=== PATIENT | female | born 1985 | race Caucasian/White ===

== ENCOUNTER 2022-05-16 15:56 | Emergency (ER) | payer MEDICAID, SELFPAY ==
[2022-05-16 15:58] VITALS: BP 149/79; PULSE 68; RESP 15; TEMP 36.2; O2SAT 98; BMI 23.1
--- NOTE | 2022-05-16 16:50 | US_ITS ---
STUDY: FIRST TRIMESTER OBSTETRICAL ULTRASOUND REASON FOR EXAM: Female, 36 years old Vaginal bleeding LMP: April 10, 2022 TECHNIQUE: Transvaginal TECHNICAL QUALITY: Adequate. PRIOR ULTRASOUND: None. FINDINGS: There is no demonstrated intrauterine gestational sac. There is no demonstrated yolk sac. The placenta is non-visualized. There is no demonstrated embryo ( pole). The estimated gestation age (EGA) by LMP is 5 weeks, 1 days. The estimated date of delivery (WALLY) by LMP is January 15, 2023. The uterus measures 9.0 x 5.0 x 3.3 cm. There is no demonstrated uterine fibroid. The cervix is closed. The right ovary measures 2.5 x 1.6 x 1.3 cm. There is no right ovarian cyst. There is no visualized right adnexal mass or complex lesion. The left ovary measures 2.7 x 2.0 x 1.6 cm.. There is 1.5 cm cyst. There is no visualized left adnexal mass or complex lesion. There is no fluid in the cul de sac. US/Transvaginal w/Preg US IMPRESSION: No intrauterine gestation seen. Left adnexal cyst. Electronically Signed: Ger Grove MD at 18:35 EDT ,
--- NOTE | 2022-05-16 17:00 | EDS_ITS ---
HPI <SHERICE Saldaña - Last Filed: 05/16/22 19:01> HPI - Female History of Present Illness Chief Complaint: Vag Bld, Preg Narrative Narrative: Patient is a 36-year-old female with no significant medical history, patient is a 1 para 1. Patient states that her last menstrual cycle was April 10. Her and her partner currently try to be and she is using the calendar method. Patient states that on Friday she tested positive for a positive with 2 separate test. She started having vaginal bleeding today as well as some cramping. She is concerned. She is currently not followed up and had a ultrasound at this time. She denies any other chest pain, shortness breath, dizziness. PFSH <SHERICE Saldaña - Last Filed: 05/16/22 19:01> PFSH Allergy/AdvReac Type Severity Reaction Status Date / Time No Known Allergies Allergy Verified 05/16/22 16:01 Surgical History (Updated 05/16/22 @ 16:39 by Simi Lockhart) History of appendectomy Social History Smoking Status: Current every day smoker tobacco type: cigarettes ROS <SHERICE Saldaña - Last Filed: 05/16/22 19:01> ROS ED ROS Narrative Constitutional: Negative for fever, chills, weight loss, weakness Eyes: Negative for vision loss, vision change, double vision ENT: Negative for any sore throat, ear pain, congestion Cardiovascular: Negative for any chest pain, tightness, palpitations Respiratory: Negative for any cough, sputum production, hemoptysis, dyspnea, dyspnea on exertion, orthopnea Gastrointestinal: Negative for any abdominal pain, nausea, vomiting, diarrhea, constipation, blood in stool, blood in vomit : Negative for any urinary frequency, dysuria, retention, blood in urine. Positive for vaginal bleeding Muscle skeletal: Negative for any muscle joint pain, stiffness, myalgias, arthralgias, neck pain, back pain Neurological: Negative for any headache, syncope, numbness or tingling, dizziness Skin: Negative for any rashes, lumps, itching, abrasions, lacerations Psychiatric: Negative for any depression, anxiety, stress, suicidal ideation, homicidal ideation Hematologic: Negative for any easy bruising, excessive bruising, easy bleeding Allergies: Negative for any eczema, hives, rash EXAM <SHERICE Saldaña - Last Filed: 05/16/22 19:01> Physical Exam Narrative Exam Narrative: Vital signs reviewed. Patient is in no distress. HEET: Head normocephalic atraumatic, TMs clear bilaterally. Posterior pharynx is clear, moist mucous membranes. Nares clear bilaterally. Neck: Supple with no lymphadenopathy or tenderness. No signs of meningismus, negative jolt sign. Cardiac: Regular rate and rhythm no murmurs gallops or rubs, equal peripheral pulses bilaterally. Respiratory: Lungs clear to auscultation bilaterally. No chest tenderness. Abdomen: Soft, nontender, nondistended. No abdominal bruit or pulsatile masses. No hepatosplenomegaly Extremities: No peripheral edema, no signs of gross trauma or deformity. Active full range of motion of all extremities. Neuro: Cranial nerves II through XII intact, no focal neurological deficits. Skin: Clean dry and intact with no rash, purpura, petechiae, vesicles or pustules. Backs/flank: No CVA tenderness, no midline spinal tenderness, no deformity. Psych: Normal mood and affect. No SI, HI or acute psychosis. Const Vital Signs: 05/16/22 15:58 Temperature 97.2 F L Temperature Source Temporal Pulse Rate 68 Respiratory Rate 15 Blood Pressure 149/79 H Blood Pressure Mean 102 Pulse Ox 98 Oxygen Delivery Method Room Air <Dr. Jeffrey Mcelroy DO - Last Filed: 05/16/22 19:26> Physical Exam Const Vital Signs: 05/16/22 15:58 Temperature 97.2 F L Temperature Source Temporal Pulse Rate 68 Respiratory Rate 15 Blood Pressure 149/79 H Blood Pressure Mean 102 Pulse Ox 98 Oxygen Delivery Method Room Air MDM <SHERICE Saldaña - Last Filed: 05/16/22 19:01> [facility] Lab Data Labs: Laboratory Results - last 24 hr 05/16/22 05/16/22 05/16/22 17:05 17:07 17:07 WBC 8.5 RBC 5.14 Hgb 15.2 H Hct 45.2 MCV 87.9 MCH 29.6 MCHC 33.6 RDW Std Deviation 40.5 RDW Coeff of Merle 12.5 Plt Count 299 MPV 10.1 Immature Gran % (Auto) 0.200 Neut % (Auto) 50.7 Lymph % (Auto) 34.6 [place] % (Auto) 10.0 Eos % (Auto) 3.6 Baso % (Auto) 0.9 Absolute Neuts (auto) 4.3 Absolute Lymphs (auto) 2.95 Nucleated RBC % 0 Differential Comment SCANNED Sodium Potassium Chloride Carbon Dioxide Anion Gap BUN Creatinine Estim Creat Clear Calc Est GFR (MDRD) Af Amer Est GFR (MDRD) Non-Af BUN/Creatinine Ratio Glucose Calcium HCG, Quant 12 H Urine Color Yellow Urine Clarity Clear Urine pH 7.0 Ur Specific [place] 1.010 Urine Protein Negative Urine Glucose (UA) Normal Urine Ketones Negative Urine Occult Blood 25 H Urine Nitrite Negative Urine Bilirubin Negative Urine Urobilinogen Normal Ur Leukocyte Esterase Negative Urine RBC 0 SEEN Urine WBC 0 SEEN Ur Squamous Epith Cells 0 SEEN Urine Bacteria 0 SEEN Urine Mucus 0 SEEN Blood Type 05/16/22 05/16/22 17:07 17:07 WBC RBC Hgb Hct MCV MCH MCHC RDW Std Deviation RDW Coeff of Merle Plt Count MPV Immature Gran % (Auto) Neut % (Auto) Lymph % (Auto) [place] % (Auto) Eos % (Auto) Baso % (Auto) Absolute Neuts (auto) Absolute Lymphs (auto) Nucleated RBC % Differential Comment Sodium 141 Potassium 3.7 Chloride 107 Carbon Dioxide 29.0 Anion Gap 5 BUN 7 Creatinine 0.86 Estim Creat Clear Calc 76.59 Est GFR (MDRD) Af Amer 95 Est GFR (MDRD) Non-Af 79 BUN/Creatinine Ratio 8.2 L Glucose 94 Calcium 9.3 HCG, Quant Urine Color Urine Clarity Urine pH Ur Specific [place] Urine Protein Urine Glucose (UA) Urine Ketones Urine Occult Blood Urine Nitrite Urine Bilirubin Urine Urobilinogen Ur Leukocyte Esterase Urine RBC Urine WBC Ur Squamous Epith Cells Urine Bacteria Urine Mucus Blood Type A NEGATIVE Radiography Diagnostic Testing: Clinical Impression(s) from Imaging Studies Obstetrics Ultrasound 05/16/22 16:50 IMPRESSION: No intrauterine gestation seen. Left adnexal cyst. Electronically Signed: Ger Grove MD at 18:35 EDT , Treatment and Re-Evaluation Narrative: All radiologic examinations were read, reviewed by the emergency department attending. From these reads, a plan of care will be put in place. Appears well, patient appears nontoxic, vital signs are stable. Patient presents to the emergency department for concern for being as well as vaginal bleeding. Patient did receive a full work-up. Patient vital signs are stable, patient has no evidence of any hemorrhage, CBC was unremarkable. Chemistries were unremarkable, her hCG quantitative was 12. Patient's blood type is A negative. Patient did receive a urinalysis which was negative for any infection. Patient's transvaginal ultrasound shows no intrauterine gestation seen, left adnexal cyst. I spoke with the patient and her partner at length. Is possible the patient so early that is difficult to assess this could be why the hCG is so low. However the patient will follow-up closely and have a repeat hCG drawn. Secondary to the spines, patient will receive a RhoGAM shot secondary to her A negative blood. Patient is agreeable with the plan, she will follow-up outpatient. I spoke with the patient and her partner, all questions were answered, return precautions given. <Dr. Jeffrey Mcelroy, DO - Last Filed: 05/16/22 19:26> [facility] MDM Narrative Medical decision making narrative: I have personally performed a face to face assessment of the patient and have reviewed the CHARLENE Note. I performed a substantive portion of the visit including all aspects of the following. My garza findings include: History: Patient presents with vaginal bleeding that began today. Patient states it started out as just some mild spotting but then became almost like a normal menstrual period bleeding. Patient states she did a test 3 days ago and it was positive. Patient is concerned that she may be having a miscarriage. Patient admits to some lower abdominal cramping. Patient denies any fevers or chills. Patient denies any urinary complaints. Exam: Vital signs are stable. Patient is afebrile. Patient is in no acute distress. Oral mucosa is pink and moist. Neck is supple. Trachea is midline. There is no JVD. Heart was regular rate and rhythm. Lungs are clear and equal bilaterally. Abdomen is soft. Bowel sounds are normal. There is some mild suprapubic tenderness. There is no rebound or guarding noted. Cranial nerves II through XII are intact. There are no focal motor or sensory deficits noted. Medical Decision Making: Differential diagnosis includes ectopic , threatened , incomplete , and urinary tract infection. CBC will be obtained to assess for leukocytosis and anemia. Quantitative hCG will be obtained to assess for status. Basic metabolic profile will be obtained to assess for electrolyte abnormality and renal function. Urinalysis will be obtained to assess for urinary tract infection. Type and Rh will be obtained to assess for blood type. Pelvic ultrasound will be obtained to assess for ectopic and spontaneous . CBC was reviewed and was within normal limits. Quantitative hCG was reviewed and was 12. Basic metabolic profile was reviewed and was within normal limits. Blood type was a negative. Urinalysis was reviewed. There is no evidence of urinary tract infection or hematuria. Pelvic ultrasound was obtained. There is no intrauterine or ectopic visualized. There is a left adnexal cyst noted. This was interpreted by the radiologist and was also independently reviewed by myself. Patient was advised of her findings. Patient was advised that with a quantitative hCG of 12, it is unable to be determined if there is a viable or not. Patient was advised with that low of a quantitative hCG, she will need to be reexamined in 2 days to have her quantitative hCG level repeated. Patient understands and is agreeable with the plan. All questions were answered. Lab Data Labs: Laboratory Results - last 24 hr 05/16/22 05/16/22 05/16/22 17:05 17:07 17:07 WBC 8.5 RBC 5.14 Hgb 15.2 H Hct 45.2 MCV 87.9 MCH 29.6 MCHC 33.6 RDW Std Deviation 40.5 RDW Coeff of Merle 12.5 Plt Count 299 MPV 10.1 Immature Gran % (Auto) 0.200 Neut % (Auto) 50.7 Lymph % (Auto) 34.6 [place] % (Auto) 10.0 Eos % (Auto) 3.6 Baso % (Auto) 0.9 Absolute Neuts (auto) 4.3 Absolute Lymphs (auto) 2.95 Nucleated RBC % 0 Differential Comment SCANNED Sodium Potassium Chloride Carbon Dioxide Anion Gap BUN Creatinine Estim Creat Clear Calc Est GFR (MDRD) Af Amer Est GFR (MDRD) Non-Af BUN/Creatinine Ratio Glucose Calcium HCG, Quant 12 H Urine Color Yellow Urine Clarity Clear Urine pH 7.0 Ur Specific [place] 1.010 Urine Protein Negative Urine Glucose (UA) Normal Urine Ketones Negative Urine Occult Blood 25 H Urine Nitrite Negative Urine Bilirubin Negative Urine Urobilinogen Normal Ur Leukocyte Esterase Negative Urine RBC 0 SEEN Urine WBC 0 SEEN Ur Squamous Epith Cells 0 SEEN Urine Bacteria 0 SEEN Urine Mucus 0 SEEN Blood Type 05/16/22 05/16/22 17:07 17:07 WBC RBC Hgb Hct MCV MCH MCHC RDW Std Deviation RDW Coeff of Merle Plt Count MPV Immature Gran % (Auto) Neut % (Auto) Lymph % (Auto) [place] % (Auto) Eos % (Auto) Baso % (Auto) Absolute Neuts (auto) Absolute Lymphs (auto) Nucleated RBC % Differential Comment Sodium 141 Potassium 3.7 Chloride 107 Carbon Dioxide 29.0 Anion Gap 5 BUN 7 Creatinine 0.86 Estim Creat Clear Calc 76.59 Est GFR (MDRD) Af Amer 95 Est GFR (MDRD) Non-Af 79 BUN/Creatinine Ratio 8.2 L Glucose 94 Calcium 9.3 HCG, Quant Urine Color Urine Clarity Urine pH Ur Specific [place] Urine Protein Urine Glucose (UA) Urine Ketones Urine Occult Blood Urine Nitrite Urine Bilirubin Urine Urobilinogen Ur Leukocyte Esterase Urine RBC Urine WBC Ur Squamous Epith Cells Urine Bacteria Urine Mucus Blood Type A NEGATIVE Radiography Diagnostic Testing: Clinical Impression(s) from Imaging Studies Obstetrics Ultrasound 05/16/22 16:50 IMPRESSION: No intrauterine gestation seen. Left adnexal cyst. Electronically Signed: Ger Grove MD at 18:35 EDT , Discharge Plan Triage Chief Complaint: Vag Bld, Preg ED Midlevel Provider: Cirilo Huang ED Provider: Jeffrey Mcelroy Dx/Rx/DC Orders Clinical Impression: Vaginal bleeding, Threatened miscarriage Instructions: ED Possible Miscarriage ... Primary Care Provider: Care Physician,No Primary Referrals: Bryan Elizabeth MD [Med Staff - Active Staff] - Care Physician,No Primary [Primary Care Provider] - Activity Restrictions/Additional Instructions: Your blood type is A negative, your hCG quant was 12. There was nothing seen on your transvaginal ultrasound. You need to follow-up with your [facility]ICE CONSULTANT to have a repeat hCG quant drawn. You received a RhoGAM shot today. Disposition Disposition: Home, Self Care
[2022-05-16 17:17] LABS: Bacteria 0 SEEN /hpf (None Seen); Mucous, Urine 0 SEEN /hpf (<or=2+); Red Blood Cells-Urine 0 SEEN /hpf (0-5); Squamous Epithelial Cells - UA 0 SEEN /hpf (5-10); White Blood Cells 0 SEEN /hpf (0-5)
[2022-05-16 17:21] LABS: Absolute Lymphocyte Count 2.95 X10^3/uL (0.83-4.51); Absolute Neutrophil Count 4.3 X10^3/uL (2.0-7.7); Basophil# 0.08 X10^3/uL; Basophil% 0.9 % (0-1); Eosinophil# 0.31 X10^3/uL; Eosinophils% 3.6 % (0-5); Hematocrit 45.2 % (37-47); Hemoglobin 15.2 g/dL (12.0-15.0); Lymphocyte # 2.95 X10^3/ul (0.83-4.51); Lymphocyte % 34.6 % (19-41); Mean Corp Hgb Conc 33.6 g/dL (32-36); Mean Corpuscular Hgb 29.6 pg (27.0-32.0); Mean Corpuscular Volume 87.9 fL (81-99); Mean Platelet Vol. 10.1 fl (6.2-12.0); Monocyte# 0.85 X10^3/uL; NRBC Flagged by Analyzer 0 % (0-5); Neutrophil # 4.31 X10^3/uL (2.7-7.7); Neutrophil % 50.7 % (47-70); POSITIVE MORPHOLOGY YES; Platelet Count 299 K/mm3 (150-450); RBC Distribution Width CV 12.5 % (11.6-14.6); RBC Distribution Width SD 40.5 fl (35.1-43.9); Red Blood Count 5.14 M/mm3 (4.2-5.4); White Blood Count 8.5 K/mm3 (4.4-11.0)
[2022-05-16 17:23] LABS: Color, Urine Yellow (Yellow); Glucose, Dipstick Normal (Normal); Ketone-Dipstick Negative (Negative); Leukocyte Esterase-Dipstick Negative /ul (Negative); Nitrite-Dipstick Negative (Negative); Occult Blood-Urine 25 /ul (Negative); Protein-Dipstick Negative (Negative); Urine Bilirubin Dipstick Negative (Negative); Urine Clarity Clear (Clear); Urine Urobilinogen Normal (Normal)
[2022-05-16 17:35] LABS: Differential Indicated SCAN CRITERIA MET
[2022-05-16 17:36] LABS: Anion Gap 5 (5-15); BUN 7 mg/dL (7-18); BUN/Creat Ratio 8.2 RATIO (10-20); Calcium,Total 9.3 mg/dL (8.5-10.1); Chloride 107 mmol/L (98-107); Creatinine, Serum 0.86 mg/dL (0.55-1.02); EST Glomerular Filtration Rate 79 mL/min (>60); Est Glom Filt Rate - Afr Amer 95 mL/min (>60); Estimated Creatinine Clearance 76.59 ml/min; Glucose 94 mg/dL (74-106); Potassium 3.7 mmol/L (3.5-5.1); Sodium Level 141 mmol/L (136-145)
[2022-05-16 17:45] LABS: Differential Comment SCANNED
[2022-05-16 17:47] LABS: hCG Titer Quant., Serum 12 mIU/mL (1-3)
[2022-05-16 20:16] VITALS: BP 115/54; PULSE 74; RESP 15; O2SAT 99
== END 2022-05-16 20:17 | disposition home or self-care (01) ==
PROVIDERS: Nurse Practitioner; Emergency Provider Emergency Medicine; Visit Provider Emergency Medicine
DX: O20.0 Threatened abortion (principal); O26.899 Other specified pregnancy related conditions, unspecified trimester; Z67.11 Type A blood, Rh negative; Z3A.00 Weeks of gestation of pregnancy not specified
CPT/HCPCS: 76817; 80048; 81001; 84702; 85025; 86850; 86900; 86901; 96372; 99283; A4216; J2790

== ENCOUNTER 2022-08-26 18:44 | Emergency (ER) | payer MEDICAID, SELFPAY ==
[2022-08-26 18:46] VITALS: BP 123/76; PULSE 69; RESP 16; TEMP 36.6; O2SAT 99; BMI 23.1
--- NOTE | 2022-08-26 18:57 | ED.VIS.DYS ---
HPI History of Present Illness Chief Complaint: Cough PFSH PFSH Allergy/AdvReac Type Severity Reaction Status Date / Time No Known Allergies Allergy Verified 08/26/22 18:46 Surgical History History of appendectomy Social History Smoking Status: Current every day smoker tobacco type: cigarettes EXAM Physical Exam Const Vital Signs: 08/26/22 18:46 08/26/22 21:40 08/26/22 21:41 Temperature 97.8 F Temperature Source Temporal Pulse Rate 69 78 Respiratory Rate 16 16 Respiratory Effort Normal Short of Breath Respiratory Depth Normal Respiratory Pattern Normal Blood Pressure 123/76 H 119/78 Blood Pressure Mean 91 91 Pulse Ox 99 99 Oxygen Delivery Method Room Air Room Air Room Air MDM MDM MDM Narrative Medical decision making narrative: HISTORY OF PRESENT ILLNESS: 36-year-old female presents with cough. She states she has been ill for the better part of the last week. States has been coughing especially with poor air quality recently. States she is approximate 6 weeks . States she may be dehydrated. Had an episode of almost passing out earlier today. Denies any chest pain or shortness of breath at this time. Does note cough and sinus congestion. She denies any vaginal bleeding, passage of any tissue. Notes history of miscarriage in April. REVIEW OF SYSTEMS: Pertinent positives: Cough, lightheadedness, near syncope Pertinent negatives: Syncope, headache, abdominal pain, vaginal bleeding PHYSICAL EXAM: Nursing triage notes reviewed, Vital signs reviewed Constitutional: please see mdm HENT: MMM Eyes: Pupils equal round and reactive to light, Extraocular muscles intact Neck: No stridor, no JVD, full neck ROM Lungs: Clear to auscultation, No wheezing or rales. No increased work of breathing, no conversational dyspnea, no accessory muscle use, no nasal flaring. No respiratory distress noted Heart: Regular rate and rhythm, No murmurs, No rubs and No gallops, 2+ distal pulses (radial, femoral, posterior tibial) in all extremities Abdomen: Soft, there is no tenderness, rigidity, rebound or guarding, no obvious peritoneal signs, no palpable pulsatile abdominal masses, no auscultated abdominal bruit : No CVAT Extremities: No edema Neuro: Alert and oriented x3, neuro exam at baseline, cranial nerves II through XII are intact. No pain with extraocular muscle movement. There is negative test of skew. Normal speech. 5 of 5 strength in upper and lower extremities in flexion extension. Intact sensation to light touch in upper and lower extremity dermatomes. No truncal or extremity ataxia. No dysdiadochokinesia. Normal gait. 2+ reflexes. No meningeal signs. Negative Babinski. NIH of 0 Skin: No rash or lesions noted MEDICAL DECISION MAKING: Chief Complaint: Cough, lightheadedness, near syncope External records reviewed: EF 55% Factors affecting care: 6 weeks OB Social determinants of health: none History obtained from others: The patient's significant other Consults: none ALL IMAGES (IF OBTAINED) HAVE BEEN PERSONALLY REVIEWED AND INTERPRETED BY MYSELF. EKG shows sinus bradycardia, normal axis, normal intervals, no obvious STEMI, no ARVD, no Brugada, no WPW CBC without leukocytosis, severe anemia, no thrombocytopenia. BMP without evidence of significant electrolyte abnormalities, no anion gap, no acute kidney injury. Troponin is negative, no evidence of myocardial ischemia Urinalysis shows no evidence of urinary inflammation suggestive of UTI, there is leuk esterase suggestive of inflammation will send urine culture to further rule out asymmetric bacteria in MDM Narrative: Patient was hemodynamically stable, afebrile, nontoxic-appearing. No focal cardiopulmonary normalities. No focal neurologic deficits noted. I had a risk and benefit discussion in terms of x-ray radiation risk and unborn fetus. Discussed with patient and significant other they agreed the benefits outweigh risk in this particular situation given her cough. She decided to undergo x-ray at this time. I considered the following differential diagnosis: Pneumonia, dehydration, electrolyte abnormality, UTI, miscarriage, Labs images were remarkable for no evidence of significant anemia, electrolyte abnormalities, myocardial ischemia, UTI. COVID and flu were also negative EKG was unremarkable. Chest x-ray was negative for pneumonia. No clear life-limiting etiology to be ascertained. Patient is likely suffering from upper respiratory tract infection likely viral. The patient and/or family, caregivers express understanding. The patient and/or family, caregivers agrees with the plan. Total critical care time today provided was at least 0 minutes. This excludes separately billable procedures. Critical care time (if documented) is secondary to the patient having high probability of clinically significant/life threatening deterioration in the patient's condition which required my urgent intervention. Shared decision making: I will have a discussion with the patient and or visitors regarding risk/benefits of further testing or admission. They will be made aware of of the risk/benefits inherent in this decision they will be given the opportunity to voice understanding. Lab Data Attestation: I reviewed the patient's lab results. Labs: Laboratory Results - last 24 hr 08/26/22 08/26/22 19:47 19:55 WBC 9.0 RBC 5.09 Hgb 14.9 Hct 45.6 MCV 89.6 MCH 29.3 MCHC 32.7 RDW Std Deviation 41.0 RDW Coeff of Merle 12.3 Plt Count 242 MPV 10.8 Immature Gran % (Auto) 0.200 Neut % (Auto) 57.8 Lymph % (Auto) 27.4 [place] % (Auto) 10.8 H Eos % (Auto) 3.1 Baso % (Auto) 0.7 Absolute Neuts (auto) 5.2 Absolute Lymphs (auto) 2.46 Nucleated RBC % 0 Sodium 137 Potassium 3.6 Chloride 109 H Carbon Dioxide 24.0 Anion Gap 4 L BUN 10 Creatinine 0.78 Estim Creat Clear Calc 84.45 Est GFR (MDRD) Af Amer 106 Est GFR (MDRD) Non-Af 87 BUN/Creatinine Ratio 12.8 Glucose 55 L Calcium 8.7 Troponin I High Sens 4 Urine Color Yellow Urine Clarity Clear Urine pH 6.0 Ur Specific [place] 1.020 Urine Protein 15 H Urine Glucose (UA) Normal Urine Ketones Negative Urine Occult Blood 10 H Urine Nitrite Negative Urine Bilirubin Negative Urine Urobilinogen Normal Ur Leukocyte Esterase 25 H Urine RBC 0 SEEN Urine WBC 0-5 SEEN Ur Squamous Epith Cells 0-5 SEEN Urine Bacteria 1+ Urine Mucus 0 SEEN Urine Test Positive H Radiography Chest X-Ray - ED: Read by ED Physician Diagnostic Testing: Clinical Impression(s) from Imaging Studies Chest X-Ray 08/26/22 20:02 IMPRESSION: No radiographic evidence of acute cardiopulmonary disease. Electronically Signed: Oseas Phillips MD at 20:14 EDT , I have personally reviewed the patient's chest x-ray. Chest x-ray is unremarkable for pulmonary edema, pneumothorax, pneumonia or focal cardiopulmonary abnormality. Discharge Plan Triage Chief Complaint: Cough ED Provider: Jovani Pritchett Dx/Rx/DC Orders Clinical Impression: Viral URI with cough Primary Care Provider: Care Physician,No Primary Referrals: Care Physician,No Primary [Primary Care Provider] - Activity Restrictions/Additional Instructions: Thank you for trusting us with your care today! Please take Tylenol (2 pills, 650 mg), every 6 hours as needed for pain and fever control. Please return to the emergency department if your symptoms change or worsen. Please follow-up with your MyChart to review your urine culture results. If they are positive you will need antibiotics. Please follow with your [facility] [employer] [employer] for further outpatient evaluation and management. Disposition Disposition: Home, Self Care Discharge Date/Time: 08/26/22 21:42
--- NOTE | 2022-08-26 19:25 | EKG12_ITS ---
Test Reason : DYSRHYTHMIA Blood Pressure : / mmHG Vent. Rate : 052 BPM Atrial Rate : 052 BPM P-R Int : 144 ms QRS Dur : 090 ms QT Int : 408 ms P-R-T Axes : 052 062 029 degrees QTc Int : 379 ms Sinus bradycardia Otherwise normal ECG Confirmed by ANGELINE DUPREE, GORDON ([id number]), rewrite editor ASHIA CANDELARIA ([id number]) on 08/28/2022 11:31:54 AM Referred By: NAA Confirmed By:JUMANA MARCUS MD
[2022-08-26 19:53] LABS: Mucous, Urine 0 SEEN /hpf (<or=2+); Red Blood Cells-Urine 0 SEEN /hpf (0-5)
--- NOTE | 2022-08-26 20:02 | RAD_ITS ---
EXAM: XR CHEST, 2 VIEWS CLINICAL INDICATION: SOB, Cough TECHNIQUE: Frontal and lateral views of the chest. COMPARISON: No relevant prior studies available. FINDINGS: LUNGS AND PLEURAL SPACES: Unremarkable. No consolidation or edema. No pneumothorax. No effusion. HEART: Unremarkable. Cardiac silhouette not enlarged. MEDIASTINUM: Central airways and mediastinal contour are unremarkable. BONES/JOINTS: Unremarkable. SOFT TISSUES: Unremarkable. RAD/Chest PA and Lateral IMPRESSION: No radiographic evidence of acute cardiopulmonary disease. Electronically Signed: Oseas Phillips MD at 20:14 EDT ,
[2022-08-26 20:03] LABS: Absolute Lymphocyte Count 2.46 X10^3/uL (0.83-4.51); Absolute Neutrophil Count 5.2 X10^3/uL (2.0-7.7); Basophil# 0.06 X10^3/uL; Basophil% 0.7 % (0-1); Eosinophil# 0.28 X10^3/uL; Eosinophils% 3.1 % (0-5); Hematocrit 45.6 % (37-47); Hemoglobin 14.9 g/dL (12.0-15.0); Lymphocyte # 2.46 X10^3/ul (0.83-4.51); Lymphocyte % 27.4 % (19-41); Mean Corp Hgb Conc 32.7 g/dL (32-36); Mean Corpuscular Hgb 29.3 pg (27.0-32.0); Mean Corpuscular Volume 89.6 fL (81-99); Mean Platelet Vol. 10.8 fl (6.2-12.0); Monocyte# 0.97 X10^3/uL; Monocyte% 10.8 % (0-10); NRBC Flagged by Analyzer 0 % (0-5); Neutrophil # 5.18 X10^3/uL (2.7-7.7); Neutrophil % 57.8 % (47-70); Platelet Count 242 K/mm3 (150-450); RBC Distribution Width CV 12.3 % (11.6-14.6); Red Blood Count 5.09 M/mm3 (4.2-5.4)
[2022-08-26 20:03] LABS: Color, Urine Yellow (Yellow); Glucose, Dipstick Normal (Normal); Ketone-Dipstick Negative (Negative); Leukocyte Esterase-Dipstick 25 /ul (Negative); Nitrite-Dipstick Negative (Negative); Occult Blood-Urine 10 /ul (Negative); Protein-Dipstick 15 mg/dl (Negative); Urine Bilirubin Dipstick Negative (Negative); Urine Clarity Clear (Clear); Urine Urobilinogen Normal (Normal)
[2022-08-26 20:19] LABS: Anion Gap 4 (5-15); BUN 10 mg/dL (7-18); BUN/Creat Ratio 12.8 RATIO (10-20); Calcium,Total 8.7 mg/dL (8.5-10.1); Chloride 109 mmol/L (98-107); Creatinine, Serum 0.78 mg/dL (0.55-1.02); EST Glomerular Filtration Rate 87 mL/min (>60); Est Glom Filt Rate - Afr Amer 106 mL/min (>60); Estimated Creatinine Clearance 84.45 ml/min; Glucose 55 mg/dL (74-106); Potassium 3.6 mmol/L (3.5-5.1); Sodium Level 137 mmol/L (136-145); Troponin-I HS 4 pg/mL (3.0-54.0)
[2022-08-26] MEDS: 0.9% Normal Saline 1,000 ML 999 ML IV (20:23)
[2022-08-26 20:24] LABS: Bacteria 1+ /hpf (None Seen); Squamous Epithelial Cells - UA 0-5 SEEN /hpf (5-10); White Blood Cells 0-5 SEEN /hpf (0-5)
[2022-08-26 21:40] VITALS: BP 119/78; PULSE 78; RESP 16; O2SAT 99
[2022-08-26 21:41] VITALS: O2SAT 97
[2022-08-26 22:11] LABS: Internal QC Validated? YES +Cl - CLEAR BKGD
[2022-08-26 22:13] LABS: Pregnancy, Urine Positive Negative
== END 2022-08-26 21:42 | disposition home or self-care (01) ==
PROVIDERS: Emergency Provider Emergency Medicine; Visit Provider Emergency Medicine
DX: O99.511 Diseases of the respiratory system complicating pregnancy, first trimester (principal); J06.9 Acute upper respiratory infection, unspecified; O99.331 Smoking (tobacco) complicating pregnancy, first trimester; F17.210 Nicotine dependence, cigarettes, uncomplicated; Z3A.01 Less than 8 weeks gestation of pregnancy
CPT/HCPCS: 71046; 80048; 81001; 81025; 84484; 85025; 87086; 87088; 87428; 93005; 96360; 99284; J7030; A4216

== ENCOUNTER 2023-04-08 05:45 | Inpatient (IN) | payer MEDICAID, SELFPAY ==
[2023-04-08] VITALS (46 sets, daily range): BP systolic 109–141; BP diastolic 57–93; PULSE 56–90; RESP 18–20; TEMP 36–37.3; O2SAT 86–100; BMI 28.5
[2023-04-08] MEDS: Lactated Ringers 1,000 ML 50 ML IV (06:05)
[2023-04-08] MEDS: LACTATED RINGERS 500 ML 999 ML IV ×3 (06:06→08:36)
[2023-04-08 06:20] LABS: Absolute Lymphocyte Count 1.78 X10^3/uL (0.83-4.51); Absolute Neutrophil Count 11.7 X10^3/uL (2.0-7.7); Basophil# 0.07 X10^3/uL; Basophil% 0.5 % (0-1); Eosinophil# 0.13 X10^3/uL; Eosinophils% 0.9 % (0-5); Hematocrit 38.4 % (37-47); Lymphocyte # 1.78 X10^3/ul (0.83-4.51); Mean Corp Hgb Conc 33.9 g/dL (32-36); Mean Corpuscular Hgb 29.5 pg (27.0-32.0); Mean Corpuscular Volume 87.1 fL (81-99); Monocyte# 1.15 X10^3/uL; Monocyte% 7.7 % (0-10); NRBC Flagged by Analyzer 0 % (0-5); Neutrophil # 11.67 X10^3/uL (2.7-7.7); Neutrophil % 78.3 % (47-70); Platelet Count 258 K/mm3 (150-450); RBC Distribution Width CV 13.3 % (11.6-14.6); RBC Distribution Width SD 42.3 fl (35.1-43.9); Red Blood Count 4.41 M/mm3 (4.2-5.4); White Blood Count 14.9 K/mm3 (4.4-11.0)
[2023-04-08] MEDS: fentaNYL-bupivacaine (epidural) 100 ML BAG EPIDURAL (07:09)
--- NOTE | 2023-04-08 08:10 | PCM.HP.OB ---
HPI - General General Date of Admission: 04/08/23 Date of Service: 04/08/23 Chief Complaint: contractions HPI Narrative PAYAL SALEH, is a 37 F who presents 3 para 1-0-1-1 at 38-3/7 weeks gestation complaining contractions. She was found to be in active labor. Her is complicated to date by advanced maternal age. She has a history of tobacco use during the , history of anxiety and depression. History of abnormal Pap smears. Maternal Data Information Final WALLY: 04/19/23 Gestational age: 38 3/7 [facility] Medical History (Updated 04/08/23 @ 08:[address] Aidee Hermosillo MD) Anxiety Depression Home Medications vit no.95-ferrous fumarate 28 mg-folic acid 800 mcg tablet () 1 tab PO DAILY 04/08/23 [History Last Taken 04/07/23 21:00] Allergy/AdvReac Type Severity Reaction Status Date / Time No Known Allergies Allergy Verified 04/08/23 05:33 Surgical History (Updated 04/08/23 @ 06:10 by Manuela Thompson) History of appendectomy History of gynecologic surgery History of surgery Social History Smoking Status: Current every day smoker tobacco type: cigarettes History Elective abortions Hx Para 1 Spontaneous abortions Hx # Term Pregnancies Ectopic pregnancies Hx # Pregnancies Multiple births # of living children ROS Constitutional Constitutional: Denies fatigue, fever(s) or malaise Eyes Eyes: Denies change in vision ENT HEENT: Denies dizziness or headache(s) Cardiovascular Cardiovascular: Denies chest pain, dyspnea or lightheadedness Respiratory/Chest Respiratory/Chest: Denies cough or dyspnea Gastrointestinal Gastrointestinal: Denies change in bowel habits Genitourinary Genitourinary: Denies burning urination or genital lesions Integumentary Integumentary: Denies rash Neurologic Neurologic: Denies confusion, dizziness, headache(s), numbness or weakness Vital Signs Vital Signs Vital Signs: 04/08/23 05:36 04/08/23 05:36 04/08/23 05:36 Temperature Temperature Source Temporal Pulse Rate 83 Blood Pressure 140/88 H BP Systolic 140 BP Diastolic 88 Pulse Ox 04/08/23 05:36 04/08/23 05:36 04/08/23 06:55 Temperature 98.0 F Temperature Source Temporal Pulse Rate Blood Pressure BP Systolic BP Diastolic Pulse Ox 98 04/08/23 06:56 04/08/23 06:56 04/08/23 06:55 Temperature 98.7 F Temperature Source Pulse Rate 90 Blood Pressure 137/93 H BP Systolic 137 BP Diastolic 93 Pulse Ox 04/08/23 06:56 04/08/23 06:56 04/08/23 07:01 Temperature Temperature Source Pulse Rate 87 Blood Pressure 134/88 H BP Systolic 134 BP Diastolic 88 Pulse Ox 99 04/08/23 07:01 04/08/23 07:01 04/08/23 07:07 Temperature Temperature Source Pulse Rate 87 88 Blood Pressure BP Systolic BP Diastolic Pulse Ox 97 04/08/23 07:07 04/08/23 07:12 04/08/23 07:12 Temperature Temperature Source Pulse Rate 70 Blood Pressure 127/76 H BP Systolic 127 BP Diastolic 76 Pulse Ox 97 04/08/23 07:12 04/08/23 07:12 04/08/23 07:16 Temperature Temperature Source Pulse Rate 72 Blood Pressure 126/82 H BP Systolic 126 BP Diastolic 82 Pulse Ox 97 04/08/23 07:16 04/08/23 07:17 04/08/23 07:17 Temperature Temperature Source Pulse Rate 78 73 Blood Pressure BP Systolic BP Diastolic Pulse Ox 97 04/08/23 07:12 04/08/23 07:21 04/08/23 07:21 Temperature Temperature Source Temporal Pulse Rate 73 Blood Pressure 128/68 H BP Systolic 128 BP Diastolic 68 Pulse Ox 04/08/23 07:12 04/08/23 07:22 04/08/23 07:22 Temperature 96.8 F L Temperature Source Pulse Rate 77 Blood Pressure BP Systolic BP Diastolic Pulse Ox 97 04/08/23 07:26 04/08/23 07:26 04/08/23 07:27 Temperature Temperature Source Pulse Rate 76 81 Blood Pressure 122/72 H BP Systolic 122 BP Diastolic 72 Pulse Ox 04/08/23 07:27 04/08/23 07:32 04/08/23 07:32 Temperature Temperature Source Pulse Rate 75 Blood Pressure 129/72 H BP Systolic 129 BP Diastolic 72 Pulse Ox 96 04/08/23 07:32 04/08/23 07:32 04/08/23 07:37 Temperature Temperature Source Pulse Rate 77 Blood Pressure 124/66 H BP Systolic 124 BP Diastolic 66 Pulse Ox 98 04/08/23 07:37 04/08/23 07:36 04/08/23 07:37 Temperature Temperature Source Pulse Rate 72 74 Blood Pressure BP Systolic BP Diastolic Pulse Ox 91 04/08/23 07:37 Temperature Temperature Source Pulse Rate Blood Pressure BP Systolic BP Diastolic Pulse Ox 97 Weight Weight: 77.9 kg Body Mass Index (BMI) 28.5 Physical Exam Const alert and no apparent distress General Appearance: cooperative HEENT normocephalic Resp normal respiratory effort Cardio regular rate GI soft to palpation GI Narrative: gravid, nontender, appropriate for gestational age Extremity no calf tenderness General Extremity: edema Skin no wounds Rashes: No rashes noted Psych activity/motor behavior normal Labs Labs Labs: Blood Type A NEGATIVE Antibody Screen POSITIVE Hct 38.4 % (37-47) Hgb 13.0 g/dL (12.0-15.0) Obstetrics Ultrasound Syphilis Total Ab Pending Assessment & Plan (1) 38 weeks gestation of : PLAN: High risk multigravida spontaneous onset of labor. Estimated weight is less than 4500 g clinically and pelvis clinically adequate to expect vaginal delivery. May have routine pain control measures during labor. (2) Spontaneous onset of labor:
[2023-04-08 08:21] LABS: Syphilis Antibodies Non-reactive
[2023-04-08 08:50] LABS: Amphetamine Urine VISTA NEGATIVE (<1000 ng/mL); Barbiturate Urine VISTA NEGATIVE (< 200 ng/mL); Benzodiazepine Urine VISTA NEGATIVE (< 200 ng/mL); Cocaine Urine VISTA NEGATIVE (< 300 ng/mL); Ecstacy Urine VISTA NEGATIVE (< 500 ng/mL); Methadone Urine VISTA NEGATIVE (< 300 ng/mL); PCP Urine VISTA NEGATIVE (< 25 ng/mL); THC Urine VISTA NEGATIVE (< 50 ng/mL); Vista UDS pH Range 5
[2023-04-08] MEDS: Oxytocin 15 Units/NS 250ml 15 UNITS/250 ML IV.SOLN 83 UNITS IV (08:52)
[2023-04-08] MEDS: Oxytocin 10 UNITS/ML Vial IM (08:53)
--- NOTE | 2023-04-08 09:00 | VUL_PTH ---
PATIENT: PAYAL SALEH LOC: [facility] U#:[id number] AGE/SX: 37/F ROOM: WP010 RE04/08/[address]: Dr. Aidee Hermosillo MD : 1985 BED: 1 DIS: 04/09/2023 SPEC #: [id number] RECD: 04/08/23 11:16 STATUS: AMANDA ALL #: [id number] ZACH: 04/08/23 09:[address]: Aidee Hermosillo DEPT: SURGICAL PATHOLOGY RECD BY: Sharon Loaiza ENTERED: 04/08/23 11:16 SP TYPE: VULVA BX OT DR: No Primary Care Phys Tissues: Vulva, NOS Procedures: Surgery Specimen Level IV HEADER OPERATION: Vulvar biopsy PRE-OP DIAGNOSIS: Vulvar lesion TISSUE SUBMITTED: Vulvar lesion x2 MICROSCOPIC DIAGNOSIS Vulvar lesion x2, excision: Consistent with condyloma x2. VASHTI:rose marie 04/09/2023 MICROSCOPIC DESCRIPTION Slides are reviewed. GROSS DESCRIPTION Received is one container labeled with the patient's name and not further designated. The specimen consists of two polypoid pieces of jin-light brown skin measuring 1.0 x 0.7 x 0.5 cm and 1.0 x 0.7 x 0.3 cm. One piece is inked black and the second piece is inked blue over black. Both pieces are bisected. The entire specimen is submitted in one cassette. / SJ:rose marie 04/08/2023 TC:[facility]: [id number]
--- NOTE | 2023-04-08 09:06 | EX.PCM.OBRPT ---
Assessment & Plan (1) Vacuum extractor delivery, delivered: (2) Single live : Maternal Data Information Final WALLY: 04/19/23 Gestational age: 38 3/7 Vaginal Delivery Maternal Presentation Maternal Presentation: Active Labor Operative Information Date of Procedure: 04/08/23 Pre-Operative Diagnosis: labor, prolonged decelerations Post-Operative Diagnosis: same Surgery / Procedure Performed: Vacuum Assisted Vaginal Delivery (low) and - (Removal of vulvar lesions x 2) Type of Anesthesia: Epidural Special Medications: none Drain: - (straight cathed before procedure) Estimated Blood Loss: 300 Time of Delivery: 08:47 Findings Description of Procedure: The patient was complete and pushing. There were prolonged decelerations. She was pushing adequately and station was plus 2 out of 5. Position was PARAMJIT. Epidural was adequate. Bladder had just been emptied by straight cath. I discussed with the patient response alternatives to trial of vacuum-assisted vaginal delivery and they desire to proceed. The vacuum was placed on the flexion point with the next contraction I pulled with 1 pop-off. The vacuum was recreated again to 550 mmHg and with the next contraction of pull to there were no more pop offs. I removed the vacuum. With maternal pushing effort A vigorous male infant was delivered PARAMJIT over first-degree vaginal laceration. A loose nuchal cord ?1 was easily reduced. The remainder the infant was delivered with maternal pushing and gentle traction only in less than 15 seconds. The Pitocin infusion was initiated for active management of the third stage. The cord was clamped and cut after cord pulsations ceased. The infant was attended to by the waiting nursing staff. The placenta was delivered spontaneously and and some membranes detached. I explored the uterus and remove the remainder of the membranes.. The cervix and vagina were intact. The first-degree laceration was repaired with 3-0 Vicryl suture. I discussed with patient option of removing the vulvar lesions 1 on her right labia majora superior edge and 1 on the left perineal area lateral to the perineal body. Patient desired this. They removed with scissors after cleansing with Betadine. The sites were oversewn with 3-0 Vicryl Rapide suture and were hemostatic. Sponge and needle counts were correct. A vaginal sweep was completed by me. Presentation: PARAMJIT Amniotic Membrane Rupture Type: Spontaneous Amniotic Fluid Description: Clear Placental Delivery Description: Spontaneous Placenta Disposition: [facility] Specimen(s) Removed: vulvar lesions- right labium majorum and left lower perineal area Cord Vessel Description: 3 Vessels Cord Entanglement: Around neck x 1, loose Nuchal Cord Compression: Without compression Cord Gases: ABG and VBG Infant A Gender: Male ([place]) (1 minute): 9 (5 minute): 9 Delayed Cord Clamping: Yes Post Vaginal Delivery Medications Given After Delivery: IV Pitocin and IM Pitocin Episiotomy Description: None Laceration: 1st degree Complication Complications: None
[2023-04-08 10:12] LABS: Pathology Specimen OB SEE PATHOLOGY REPORT
[2023-04-08] MEDS: 0.9% Saline Lock 10 ML Syringe IV (12:07)
[2023-04-08] MEDS: Rho(D) Immune Globulin 300 MCG (1500 Unit) Syringe IV (16:33)
[2023-04-09 04:05] VITALS: BP 124/78; PULSE 73; RESP 16; TEMP 36.9; O2SAT 99
[2023-04-09] MEDS: Ibuprofen 600 MG Tablet PO (05:14)
[2023-04-09] MEDS: Acetaminophen 500 MG Tablet 1000 MG PO ×2 (05:15→14:07)
[2023-04-09 08:00] VITALS: BP 125/84; PULSE 60; RESP 16; TEMP 36.7; O2SAT 97
--- NOTE | 2023-04-09 08:18 | PCM.DC.SUM ---
Providers Date of Admission: 04/08/23 Primary Care Physician: No Primary Care Phys Reason For Visit: VAFINAL DELIVERY Diagnosis Discharge Diagnosis (1) Vacuum extractor delivery, delivered: Status: Acute Code(s): O75.9 - Complication of labor and delivery, unspecified (2) Single live : Status: Acute Code(s): Z37.0 - Single live Medications at Discharge Home Medications vit no.95-ferrous fumarate 28 mg-folic acid 800 mcg tablet () 1 tab PO DAILY 04/08/23 acetaminophen 500 mg tablet 1,000 mg (2 x 500 mg) PO Q6H PRN PRN Pain 1-10 Or Fever #0 tabs 04/09/23 ibuprofen 600 mg tablet 600 mg PO Q6H PRN PRN Pain Score 1-3 #0 tabs 04/09/23 Hospital Course Operations None Summary of Care Provided Minutes Spent on Discharge: 15 Hospital Course: Presented in active labor and had vacuum assited vaginal delivery on 04/08/[address] Hermosillo. D/C home in stable condition. Physical Exam Narrative dressing dry and intact, fundus firm Const alert and oriented x3 General Appearance: cooperative HEENT normocephalic Neck General: normal visual inspection GI soft to palpation and non-distended GI Narrative: Fundus firm Extremity normal to inspection and no calf tenderness Skin no rashes or lesions noted Neuro oriented x3 and CN's II-XII intact bilaterally Psych mental status grossly normal Weight / BMI Weight Weight: 77.9 kg Body Mass Index (BMI) 28.5 ABG / Lab / Microbiology Data 04/08/23 06:05 Laboratory: Laboratory Results - last 24 hr 04/08/23 06:05: Syphilis Total Ab Non-reactive, Antibody Identification ANTI-D 04/08/23 08:20: Urine Opiates Screen NEGATIVE, Urine Methadone Screen NEGATIVE, Ur Barbiturates Screen NEGATIVE, Ur Phencyclidine Scrn NEGATIVE, Ur Amphetamines Screen NEGATIVE, MDMA (Ecstasy) Screen NEGATIVE, U Benzodiazepines Scrn NEGATIVE, Urine Cocaine Screen NEGATIVE, U Cannabinoids Screen NEGATIVE, Ur Drug Screen Comment 04/08/23 11:10: Screen NEGATIVE, Baby's Blood Type B POSITIVE, Baby's JAYESH NEGATIVE D/C Instructions Discharge Diet: No restrictions May resume sexual activity in: 6-8 weeks Call your doctor if you observe: Fever of 101 or Higher, Inability to urinate, Using more than 1 pad per hour and Uncontrolled pain Please Follow Up With: Suellen Benitez MD When: 1-2 weeks post and again at 6 weeks post . [phone] Meaningful Use Info Meaningful Use Diagnoses (Choose all that apply): None applicable Discharge Plan Admission Admit Date/Time: 04/08/23 05:45 Attending Provider: Aidee Hermosillo Primary Care Provider: Care Physician,No Primary Discharge Orders/Prescriptions Prescriptions: New acetaminophen 500 mg Tablet 1,000 mg PO Q6H PRN PRN (Reason: Pain 1-10 Or Fever) Qty: 0 0RF ibuprofen 600 mg Tablet 600 mg PO Q6H PRN PRN (Reason: Pain Score 1-3) Qty: 0 0RF Continued PNV cmb#95-ferrous fumarate-FA [] 28 mg iron- 800 mcg tablet 1 tab PO DAILY Referrals / Follow Up: Care Physician,No Primary [Primary Care Provider] - Disposition Disposition (needs filled in before D/C Order can be placed): Home, Self Care
--- NOTE | 2023-04-09 12:08 | CASEMGMT ---
Social Work Assessment Labor and Delivery Unit Patient Address:[address] [place] [address] [address] [facility] Phone number: [phone] Date of Referral: 04/08/23 Time of Referral:? 614 Referred By: Kamini Hilton Date of Intervention: ??04/09/23 Time of Intervention:? 1000 Reason for Referral:? hx drug/ alcohol use Sw completed chart review and acknowledges social work consult due to maternal history of substance use and alcohol use. Sw presented to bedside and introduced self to mother of baby (MOB- Lois) and father of baby (FOB- Gómez). Sw explained reason for sw involvement and completed psychosocial assessment. Sw asked FOB to step out of room momentarily so that MOB could complete Eldon Depression Scale. FOB did so respectfully and willingly. History obtained from: medical records, MOB and FOB Household composition: Currently residing in the family home is MOB, PRESTON, PJ's older daughter (Ana, 12 years old) and now baby. Parents deny any issues or concerns with housing. Patient's parent/guardian status:? ?Parents state that each of them have a history of substance use/abuse and went through treatment. As a result both parents are connected to supports through AA and met there, they have been together for 2 years. baby is first baby for FOB. While meeting with MOB privately she denies any domestic violence or intimate partner violence. Medical History: ?PJ is 3, para 2. PJ received routine care during with [facility]. PJ presented to hospital on 04/08/23 and delivered baby via vaginal delivery at 38 weeks gestation. Baby boy, Megan, was born weighing 6lb 12oz and his apgars were 9 and 9 at one and five minutes of life respectfully. PJ was not intending on breast feeding baby, however was informed that he is experiencing withdrawal from nicotine exposure during . MOB states that she started to provide breast milk due to not wanting baby to go through withdrawal symptoms. MOB asked about process of weaning from nicotine exposure. Sw encouraged MOB to talk to or flour mixer those specific questions. Baby will be followed by Dr. Tomas for pediatrics. Educational Status:? Both parents graduated from high school. MOB obtained an associates degree. No concerns with reading, learning or comprehension. Financial Status: Both parents are currently employed. FOB is a rehabilitation program coordinator for [employer]: [facility] [employer] in [facility]. PJ is employed through [employer], but does not know if she is going to return following her maternity leave. Infant Supplies:??Parents have obtained all necessary baby supplies, including: car seat, safe sleep space, clothes, diapers and wipes. Childcare/Caregiver(s):? PJ will be the primary caregiver during maternity leave, along with PRESTON when he is not at work. Parents state that they are not sure who will provide childcare when both parents are working. Danyel informed parents of Title [place] resources that may be available to them. Transportation:?? Parents have reliable means of transportation, no barriers. Programs/Agencies Involved: ???PJ is connected to resources through [employer], including insurance and WIC. Children Services/Legal Issues:???No history of involvement, no issues or concerns warranting referral to be made at this time. Behavioral Health Issues: ??Mental Health History:?PRESTON denies mental health diagnoses aside from ZANDRA. PJ states that she has been diagnosed with anxiety and depression. PJ states that she also has ZANDRA. PJ denies experiencing any baby blues or depression or anxiety following the of her 12 year old daughter. PJ denies medications and states that she does not feel as though she struggles with either anxiety or depression at this time. PJ completed Eldon Depression Scale, her score was an 8. Sw provided education and support. ?? Substance Use History: PJ and PRESTON have substance use history. 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 Both parents have engaged in treatment and have a strong recovery support [facility]. ?? Family History:??PJ states that her brother and her father have consistently struggled with alcohol abuse. ??? Drug Screens: ??MOB and baby urine screens were negative for substances. Family/Social Stressors:? Parents deny any issues or concerns at this time. Support Systems: Parents report that they are each other's primary supports. Depression/Shaken Baby/Safe Sleeping:? Sw educated MOB and FOB on signs and symptoms of baby blues and depression and anxiety. Parents express understanding. Sw educated parents on shaken baby prevention and ABCs fo safe sleep. Parents express understanding. ASSESSMENT:? MOB and baby admitted following labor and delivery. MOB and FOB made and maintained consistent eye contact with sw during assessment. Parents open regarding their substance use history. Parents in recovery and connected to substance and mental health supports. Parents have obtained everything they need for baby and although they have limited supports, they are supports to each other and do have people they can reach out to if they were to need something. Parents talkative and receptive to sw involvement and support. PLAN:? MOB and baby to be discharged when medically ready. ?No other services requested or indicated. Sergio Summers, SEAM RUBBING MACHINE OPERATOR, VOCATIONAL REHABILITATION ADMINISTRATOR
[2023-04-09 12:09] VITALS: BP 131/91; PULSE 63; RESP 16; TEMP 36.6; O2SAT 99
[2023-04-09 14:00] VITALS: BP 137/92; PULSE 76; RESP 16; O2SAT 97
[2023-04-09 15:57] VITALS: BP 120/75
== END 2023-04-09 16:16 | disposition home or self-care (01) | DRG 560 ==
LOC: WPOUT 05:49 → WP 05:49
PROVIDERS: Advanced Practice Midwife; Admitting Provider Obstetrics & Gynecology; Visit Provider Obstetrics & Gynecology
DX: O76 Abnormality in fetal heart rate and rhythm complicating labor and delivery (principal); Z37.0 Single live birth; F17.200 Nicotine dependence, unspecified, uncomplicated; O99.334 Smoking (tobacco) complicating childbirth; O69.81X0 Labor and delivery complicated by cord around neck, without compression, not applicable or unspecified; O70.0 First degree perineal laceration during delivery; Z3A.38 38 weeks gestation of pregnancy
CPT/HCPCS: 59025; 59050; 80307; 85025; 85461; 86780; 86850; 86870; 86900; 86901; 88305; 90384; 99221; J7120; A4216; G0378; J2790; J2791

== ENCOUNTER 2024-04-12 16:50 | Emergency (ER) | payer MEDICAID, SELFPAY ==
[2024-04-12 16:51] VITALS: BP 119/78; PULSE 94; RESP 15; TEMP 38.1; O2SAT 100; BMI 24.7
[2024-04-12 18:05] VITALS: TEMP 38.1
[2024-04-12 18:19] VITALS: TEMP 38.1
[2024-04-12] MEDS: Acetaminophen 325 MG Tablet 650 MG PO (18:43)
[2024-04-12] MEDS: 0.9% Normal Saline (1000mL) 1,000 ML 1000 ML IV (18:45)
[2024-04-12 18:49] LABS: Absolute Lymphocyte Count 0.64 X10^3/uL (0.83-4.51); Absolute Neutrophil Count 6.2 X10^3/uL (2.0-7.7); Basophil# 0.05 X10^3/uL; Basophil% 0.6 % (0-1); Eosinophil# 0.17 X10^3/uL; Hematocrit 43.7 % (37-47); Hemoglobin 14.7 g/dL (12.0-15.0); Lymphocyte # 0.64 X10^3/ul (0.83-4.51); Lymphocyte % 7.6 % (19-41); Mean Corp Hgb Conc 33.6 g/dL (32-36); Mean Corpuscular Hgb 29.9 pg (27.0-32.0); Mean Platelet Vol. 10.1 fl (6.2-12.0); Monocyte# 1.34 X10^3/uL; Monocyte% 15.9 % (0-10); NRBC Flagged by Analyzer 0 % (0-5); Neutrophil # 6.19 X10^3/uL (2.7-7.7); Neutrophil % 73.7 % (47-70); Platelet Count 249 K/mm3 (150-450); RBC Distribution Width CV 13.2 % (11.6-14.6); RBC Distribution Width SD 43.1 fl (35.1-43.9); Red Blood Count 4.91 M/mm3 (4.2-5.4); White Blood Count 8.4 K/mm3 (4.4-11.0)
[2024-04-12 18:54] LABS: Anion Gap 6 (5-15); BUN 8 mg/dL (7-18); BUN/Creat Ratio 8.9 RATIO (10-20); Calcium,Total 8.7 mg/dL (8.5-10.1); Chloride 105 mmol/L (98-107); EST Glomerular Filtration Rate 74 mL/min (>60); Est Glom Filt Rate - Afr Amer 90 mL/min (>60); Estimated Creatinine Clearance 74.77 ml/min; Glucose 89 mg/dL (74-106); Potassium 3.9 mmol/L (3.5-5.1); Sodium Level 137 mmol/L (136-145)
--- NOTE | 2024-04-12 19:45 | RAD_ITS ---
PROCEDURE: PA and lateral chest radiographs, two views REASON FOR EXAM: Cough and fever TECHNIQUE: PA and lateral chest radiographs were obtained. COMPARISON: 08/26/2022 FINDINGS: The cardiomediastinal silhouette is similar. Monitoring leads overlie the chest. Bones of the thorax are intact. No focal airspace consolidation, pneumothorax, or pleural effusion. RAD/Chest PA and Lateral IMPRESSION: No acute cardiopulmonary process is demonstrated. If there are persistent symp toms or clinical concern, short-term follow-up chest CT evaluation may be considered. Reading Location: [facility]
--- NOTE | 2024-04-12 20:04 | CT_ITS ---
EXAM: CT brain without IV contrast CLINICAL HISTORY: Altered mental status COMPARISON: None TECHNIQUE: Multiple contiguous axial images of the brain were obtained without the administration of intravenous contrast. Two-dimensional coronal and sagittal reformatted images were reconstructed. Low-dose imaging technique was utilized. FINDINGS: No evidence of acute intracranial hemorrhage, midline shift or mass effect. No definite CT evidence of acute territorial cortical infarction. No hydrocephalus. Cerebral volume is maintained. Calvarium is intact. Paranasal sinuses and mastoid air cells are clear. Globes are intact. CT/Brain/Head without Contrast IMPRESSION: No acute intracranial abnormality. Reading Location: [facility]
--- NOTE | 2024-04-12 21:38 | EX.ED.DYSGE1 ---
HPI History of Present Illness Chief Complaint: Confusion Detail of Chief Complaint: Disorientation per , fever, myalgias arthralgias cough congestion ve Informant: patient and spouse/S.O. Onset/Context/Timing Onset: Today Context: Sudden Onset Timing: Continuous Quality: HPI narrative for complete detail Location: Generalized Current Severity: Mild Maximum Severity: Severe Worsened by: Nothing Relieved by: Nothing Associated Symptoms Associated Symptoms: Vertex headache, myalgias arthralgias, cough, fever and HPI narrative Narrative Narrative: Patient is a 38-year-old woman. She is a smoker of 1 pack/day. She states she is trying to quit. She was brought in by her because she was not making sense according the . She had a temperature at home of 99.5. Her temperature in the department was 100.5. She feels much warmer than 100.5. Patient complains of headache worse vertex. She also complains of pressure behind her eyes. She denies earache or ear drainage. She does endorse rhinorrhea congestion postnasal drainage and sore throat. She does endorse increased cough from her baseline. Cough is nonproductive. She denies abdominal pain, nausea, vomiting or diarrhea. She denies dysuria, frequency, urgency or hematuria. If anything she has had decreased urine output. Patient has not noted any joint swelling. She has not noted a rash. She has had no ill contacts. Prior similar symptoms: No Recent Illness/Hospitalization: No [facility] Medical History Depression Anxiety Home Medications ?Medication ?Instructions ?Recorded ?Last Taken ?Type NK 04/12/24 Unknown History Allergy/AdvReac Type Severity Reaction Status Date / Time No Known Allergies Allergy Verified 04/12/24 16:50 Surgical History History of surgery History of gynecologic surgery History of appendectomy Social History Smoking Status: Current every day smoker tobacco type: cigarettes ROS ROS ED Constitutional Constitutional ED: Reports chills, fever(s) and sweats Eyes Eyes: Denies blurry vision, change in vision or diplopia ENT ENT ED: Reports rhinorrhea and sore throat; Denies ear pain Cardiovascular Cardiovascular: Denies chest pain, orthopnea, palpitations, paroxysmal nocturnal dyspnea or racing heartbeat Respiratory/Chest Respiratory/Chest: Reports cough and dyspnea; Denies dyspnea on exertion, orthopnea, paroxysmal nocturnal dyspnea or sputum Gastrointestinal Gastrointestinal: Denies abdominal pain, diarrhea, nausea or vomiting Genitourinary Genitourinary ED: Denies dysuria, hematuria or urinary frequency Musculoskeletal Musculoskeletal: Denies arthralgias or myalgias Integumentary Denies rash Neurologic Neurologic: Reports headache(s) and weakness; Denies paresthesias Psychiatric Psychiatric: Denies anxiety or depression Endocrine Endocrinology: Denies cold intolerance or heat intolerance Hematologic/Lymphatic Hematologic/Lymphatic: Reports systems reviewed and no addt'l complaints, except as documented EXAM Physical Exam Const Vital Signs: 04/12/24 16:51 04/12/24 18:05 04/12/24 18:19 Temperature 100.5 F H 100.5 F H 100.5 F H Temperature Source Oral Oral Oral Pulse Rate 94 Respiratory Rate 15 Blood Pressure 119/78 Blood Pressure Mean 91 Pulse Ox 100 Oxygen Delivery Method Room Air Vital signs noted. She is febrile. She is not hypoxic. Positive well nourished and well developed Constitutional Narrative: She appears ill. She is awake but not alert. General Appearance ED: well developed and pallor; Negative for cyanotic or diaphoretic HEENT Reports dry mucous membranes HEENT Narrative: Head is atraumatic normocephalic. Ears normal. TMs normal. Nares patent with clear discharge. Posterior pharynx out erythema or exudate. Uvula midline. No deviation protrusion. Mouth ED: Yes dry mucous membranes Mouth: dry mucous membranes Eyes PERRL and EOMs intact bilaterally General Eye ED: Negative for pale conjunctiva or scleral icterus Neck no lymphadenopathy, supple and no JVD Chest Wall inspection of chest normal and palpation of chest normal Resp normal respiratory effort Resp Narrative: Adventitial breath sounds bilaterally Cardio regular rate, regular rhythm, S1 normal heart sound, S2 normal heart sound and no murmurs GI normal to inspection, nondistended, normoactive bowel sounds, non-tender, non-distended and no masses; Negative for hepatosplenomegaly Back/Spine no CVA tenderness Back/Spine Narrative: Inspection of the back is normal. Extremity General Extremety ED: Negative for edema or tenderness General Extremity: Negative for edema Neuro oriented x3, CN's II-XII intact bilaterally and no sensory deficits noted Motor Exam: strength 5/5 throughout Psych mental status grossly normal Skin no rashes or lesions noted, no wounds and skin turgor normal General Skin Exam: pallor; Negative for elasticity normal or jaundice MDM MDM MDM Narrative Medical decision making narrative: With vertex headache and constipation symptoms suspect this most likely is a viral cephalgia. Will obtain rapid antigen for COVID, RSV and influenza. If negative with her complaint of vertex headache and altered sensorium per will obtain CT of the head to assess for sphenoid sinusitis. Will obtain CBC to assess white count differential. BMP to assess renal function CO2 anion gap and lactate to determine if there is any evidence of poor perfusion. Chest x-ray was obtained because of the abnormal adventitial sounds to rule out pneumonia. Lab Data Attestation: I reviewed the patient's lab results. Lab results narrative: CBC is unremarkable. Neutrophil count is slightly up. Basic metabolic panel is normal. Lactate is normal Labs: Laboratory Results - last 24 hr 04/12/24 18:30 WBC 8.4 RBC 4.91 Hgb 14.7 Hct 43.7 MCV 89.0 MCH 29.9 MCHC 33.6 RDW Std Deviation 43.1 RDW Coeff of Merle 13.2 Plt Count 249 MPV 10.1 Immature Gran % (Auto) 0.200 Neut % (Auto) 73.7 H Lymph % (Auto) 7.6 L Bremer % (Auto) 15.9 H Eos % (Auto) 2.0 Baso % (Auto) 0.6 Absolute Neuts (auto) 6.2 Absolute Lymphs (auto) 0.64 L Nucleated RBC % 0 Sodium 137 Potassium 3.9 Chloride 105 Carbon Dioxide 27.0 Anion Gap 6 BUN 8 Creatinine 0.90 Estim Creat Clear Calc 74.77 Est GFR (MDRD) Af Amer 90 Est GFR (MDRD) Non-Af 74 BUN/Creatinine Ratio 8.9 L Glucose 89 Lactic Acid 1.0 Calcium 8.7 Radiography Chest X-Ray - ED: 2 View and Read by ED Physician (Normal cardiac silhouette and size. Hilum is normal. Lung parenchyma is normal. Osseous structures are normal.) Diagnostic Testing: Clinical Impression(s) from Imaging Studies Chest X-Ray 04/12/24 19:45 IMPRESSION: No acute cardiopulmonary process is demonstrated. If there are persistent symptoms or clinical concern, short-term follow-up chest CT evaluation may be considered. Reading Location: [facility] 04/12/24 20:04 IMPRESSION: No acute intracranial abnormality. Reading Location: [facility] CT of the head was reviewed by me. There is no evidence of maxillary, ethmoid, frontal or sphenoid sinusitis. Lung parenchyma appeared normal. Treatment and Re-Evaluation :: Patient and were informed of results. She feels better after 1 L of fluid and 6 and 50 mg of acetaminophen for her fever. Patient was told this in all likelihood is due to viral illness other than COVID, RSV or influenza. Discharge Plan Triage Chief Complaint: Confusion ED Provider: Isauro Negron Dx/Rx/DC Orders Clinical Impression: Systemic viral illness, Viral cephalgia, Fever in adult, Acute alteration in mental status, Tobacco use, Acute dehydration Instructions: ED Viral Syndrome (Adult) Prescriptions: No Action NK Primary Care Provider: Care Physician,No Primary Referrals: Care Physician,No Primary [Primary Care Provider] - Activity Restrictions/Additional Instructions: The name of your primary care physician is located on your card issued to you by [facility] community plan. You may take 600 mg of ibuprofen every 6-8 hours for the next 24 to 48 hours [id number] or 650 mg of Tylenol every 6 hours [id number]. Print Language: Bolivian Disposition Disposition: Home, Self Care
[2024-04-12 21:57] VITALS: BP 115/74; PULSE 89; RESP 16; TEMP 37.2; O2SAT 99
== END 2024-04-12 21:58 | disposition home or self-care (01) ==
PROVIDERS: Emergency Provider Emergency Medicine; Visit Provider Emergency Medicine
DX: B34.9 Viral infection, unspecified (principal); R41.82 Altered mental status, unspecified; E86.0 Dehydration; F17.210 Nicotine dependence, cigarettes, uncomplicated
CPT/HCPCS: 70450; 71046; 80048; 83605; 85025; 87631; 96360; 99284